=== PATIENT | female | born 1975 | race African-American/Black ===

== ENCOUNTER 2020-04-26 16:29 | Emergency (ER) | payer SELFPAY ==
[~2020-04-26] VITALS: Ht 160 cm; Wt 156.1 kg
[~2020-04-26 16:29] MED LIST: ONDA4TAB7 PO
[2020-04-26 16:50] VITALS: BP 153/77
[2020-04-26] MEDS ORDERED: PRED-220 PO (17:39)
--- NOTE | 2020-04-26 17:40 | PHYS DOC ---
Past History Past Medical History: No Pertinent History Past Surgical History: Cholecystectomy, Alcohol Use: None Drug Use: None General Adult EDM: Chief Complaint: FACE PAIN HPI: HPI: 44-year-old female presents with left-sided facial pain. She has had this intermittent pain for the last 1 week. It is a sharp and shooting pain 8/10 mostly in the maxilla, but involving the entire left side of her face. It does not cross midline. She is never had this before. She denies trauma or falls. She has not noticed any cavities or sensitive teeth. She admits that her bite on that side feels slightly different. The sharp shooting pain turned into a pressure sensation in the left side of her head. Even after the episodes stopped, this headache continues for few hours. She is mostly concerned because these episodes have gone on for a week and they seem to be more frequent not less. She is just tired of it. Review of Systems: Review of Systems: Constitutional: Denies fever or chills Eyes: Denies change in visual acuity HENT: Left-sided facial pain Respiratory: Denies cough or shortness of breath Cardiovascular: Denies chest pain or edema GI: Denies abdominal pain, nausea, vomiting, bloody stools or diarrhea : Denies dysuria Musculoskeletal: Denies back pain or joint pain Integument: Denies rash Neurologic: Denies headache, focal weakness or sensory changes Endocrine: Denies polyuria or polydipsia Lymphatic: Denies swollen glands Psychiatric: Denies depression or anxiety Heart Score: Risk Factors: Risk Factors: DM, Current or recent (<one month) smoker, HTN, HLP, family history of CAD, obesity. Risk Scores: Score 0 - 3: 2.5% MACE over next 6 weeks - Discharge Home Score 4 - 6: 20.3% MACE over next 6 weeks - Admit for Clinical Observation Score 7 - 10: 72.7% MACE over next 6 weeks - Early Invasive Strategies Allergies: Allergies: Allergies Coded Allergies Type Severity Reaction Last Updated Verified No Known Drug Allergies 12/18/15 No Physical Exam: PE: Constitutional: Well developed, well nourished, morbidly obese, no acute distress, non-toxic appearance. [] HENT: Sensitivity to palpation of the preauricular area of the left face. Normocephalic, atraumatic, bilateral external ears normal, oropharynx moist, no oral exudates, nose normal. [] Eyes: PERRLA, EOMI, conjunctiva normal, no discharge. [] Neck: Normal range of motion, no tenderness, supple, no stridor. [] Cardiovascular: Heart rate regular rhythm, no murmur [] Lungs & Thorax: Bilateral breath sounds clear to auscultation [] Abdomen: Bowel sounds normal, soft, no tenderness, no masses, no pulsatile masses. [] Skin: Warm, dry, no erythema, no rash. [] Back: No tenderness, no CVA tenderness. [] Extremities: No tenderness, no cyanosis, no clubbing, ROM intact, no edema. [] Neurologic: Alert and oriented X 3, normal motor function, normal sensory function, no focal deficits noted. [] Psychologic: Affect normal, judgement normal, mood anxious. [] Current Patient Data: Vital Signs: Vital Signs Date Time Temp Pulse Resp B/P (MAP) Pulse Ox O2 Delivery O2 Flow Rate FiO2 04/26/20 16:50 97.9 84 20 153/77 (102) 98 Room Air EKG: EKG: [] Radiology/Procedures: Radiology/Procedures: [] Course & Med Decision Making: Course & Med Decision Making Pertinent Labs and Imaging studies reviewed. (See chart for details) The patient's symptoms could be an acute irritation of the trigeminal nerve. This could be first episode onset of trigeminal neuralgia. I will assume a local cause at this time. I will treat her with 7 days of prednisone taper. If this does not help, I have advised the patient to follow-up with her primary care physician and see a neurologist as soon as possible. She is stable for discharge at this time. [] Jp Disclaimer: Jp Disclaimer: This electronic medical record was generated, in whole or in part, using a voice recognition dictation system. Departure Departure: Impression: Primary Impression: Facial pain, acute Additional Impression: Trigeminal neuralgia of left side of face Disposition: 01 HOME/RESIDENCE PRIOR TO ADM Condition: STABLE Referrals: SEAN GARCIA DO (PCP) Patient Instructions: Trigeminal Neuralgia Scripts Prednisone (PREDNISONE) 10 Mg Tablet 10 MG PO UD for PREDNISONE TAPER, #24 TAB 0 Refills Take 5 tablets by mouth daily for 2 days, then take 4 tablets by mouth daily for 2 days, then take 2 tablet by mouth daily for 2 days, then take 1 tablet by mouth daily for 2 days, then stop. Prov: SHAN BOYER DO 04/26/20 Justification of Admission: Justification of Admission: Justification of Admission Dx: N/A SHAN BOYER DO Apr 26, 2020 17:39
== END 2020-04-26 17:44 | disposition home or self-care (01) ==
LOC: ER 16:29
DX: G50.0 Trigeminal neuralgia (principal)
CPT/HCPCS: 99283

== ENCOUNTER 2020-06-04 13:10 | Emergency (ER) | payer OTHER ==
[~2020-06-04] VITALS: Ht 160 cm; Wt 156.1 kg
[~2020-06-04 13:10] MED LIST changes: +PRED-220 PO
[2020-06-04 13:34] VITALS: BP 134/84
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
== END 2020-06-04 14:25 | disposition home or self-care (01) ==
LOC: ER 13:10
DX: G89.11 Acute pain due to trauma (principal); M54.2 Cervicalgia; Z90.49 Acquired absence of other specified parts of digestive tract; Z98.890 Other specified postprocedural states; V98.8XXA Other specified transport accidents, initial encounter; Y93.89 Activity, other specified; Y92.413 State road as the place of occurrence of the external cause; Y99.8 Other external cause status
CPT/HCPCS: 70450; 72125; 99285

== ENCOUNTER 2020-10-28 18:53 | Emergency (ER) | payer SELFPAY ==
[~2020-10-28] VITALS: Ht 160 cm; Wt 153.6 kg
--- NOTE | 2020-10-28 19:30 | PHYS DOC ---
Past History Past Medical History: No Pertinent History Past Surgical History: Cholecystectomy, Alcohol Use: None Drug Use: None Adult General Chief Complaint Chief Complaint: LOWER EXTREMITY SWELLING HPI HPI Patient is a 45-year-old female with a past medical history significant for obesity otherwise unremarkable who presents with a chief complaint of right lower extremity swelling. States it started about 10 to 14 days ago in her right lower extremity. States over the last several days the swelling has increased and has become tender, 5 out of 10, dull and achy in nature and is uncomfortable when she walks. States she saw her primary care physician who started on a water pill but has not improved her situation. Denies any recent travel, illnesses, Covid/flu symptoms, traumas, recent surgeries, history of cancer. Allergies Allergies Allergies Coded Allergies Type Severity Reaction Last Updated Verified No Known Drug Allergies 12/18/15 No Physical Exam Physical Exam Constitutional: Well developed, well nourished, no acute distress, non-toxic appearance. [] Cardiovascular:Heart rate regular rhythm, no murmur [] Lungs & Thorax: Bilateral breath sounds clear to auscultation [] Abdomen: soft, no tenderness, no masses, no pulsatile masses. [] Skin: Warm, dry, no erythema, no rash. [] Back: No tenderness, no CVA tenderness. [] Extremities: Right lower extremity swelling/edema inferior to the right knee with tenderness but no erythema and mild warmth Neurologic: Alert and oriented X 3, normal motor function, normal sensory function, no focal deficits noted. [] Psychologic: Affect normal, judgement normal, mood normal. [] EKG EKG [] Radiology/Procedures Radiology/Procedures []Right Lower Extremity Venous Doppler: Reason for examination: Right lower extremity pain and swelling. The right lower extremity venous system was evaluated from the common femoral and greater saphenous veins distally to the calf veins with lo scale imaging, color flow imaging and spectral analysis. There is normal blood flow without deep venous thrombosis. There is normal response of the venous system to compression and augmentation. Impression: No deep venous thrombosis in the right lower extremity venous system. Electronically signed by: Samanta Holman MD (10/28/2020 8:38 PM) [facility] Heart Score C/O Chest Pain: No HEART Score for Chest Pain: HEART Score for Chest Pain Response (Comments) Value History Slighlty/Non-Suspicious 0 ECG Normal 0 Age < 45 0 Risk Factors 1 or 2 Risk Factors 1 Total 1 Risk Factors: Risk Factors: DM, Current or recent (<one month) smoker, HTN, HLP, family history of CAD, obesity. Risk Scores: Risk Factors: DM, Current or recent (<one month) smoker, HTN, HLP, family history of CAD, obesity. Course & Med Decision Making Course & Med Decision Making Patient is a 45-year-old female who presents with right lower extremity swelling and tenderness Vital signs not concerning. Physical exam noted above. Patient given oral pain medication Laboratory analysis not concerning. D-dimer normal. Ultrasound of the lower extremity normal. Discussed all findings with patient. Recommended compression stockings, elevation of extremities is much as possible, continuation of her medications and water pill that was prescribed by PCP. Advised to follow-up first thing in the morning with primary care physician to discuss ED visit and further evaluation and treatment. Gave strict return precautions to the ED. Patient grateful, verbalized understanding and agreed with plan of discharge. [] Dragon Disclaimer Dragon Disclaimer This electronic medical record was generated, in whole or in part, using a voice recognition dictation system. Departure Departure: Impression: Primary Impression: Lower extremity edema Disposition: 01 DC HOME SELF CARE/HOMELESS Condition: GOOD Referrals: SEAN GARCIA DO (PCP) Patient Instructions: Peripheral Edema Additional Instructions: Please read all the attached information. Your ultrasound did not show blood clot in your leg today. Your laboratory analysis was not concerning. Please begin using compression stockings, and keeping your extremities elevated as much as possible. Please continue taking your medications as prescribed by your primary care. Please call your primary care physician first thing in the m orning to update on your ED visit, and to set up a follow-up appointment to discuss further evaluation and treatment. Please come back to the emergency department immediately with any new or concerning symptoms. JAYESH HARDEN MD Oct 28, 2020 19:30
--- NOTE | 2020-10-28 20:40 | RAD ---
Right Lower Extremity Venous Doppler: Reason for examination: Right lower extremity pain and swelling. The right lower extremity venous system was evaluated from the common femoral and greater saphenous v eins distally to the calf veins with lo scale imaging, color flow imaging and spectral analysis. There is normal blood flow without deep venous thrombosis. There is normal response of the venous sys tem to compression and augmentation. Impression: No deep venous thrombosis in the right lower extremity venous system. Electronically signed by: Samanta Holman MD (10/28/2020 8:38 PM) [id number]
[2020-10-28 20:50] LABS: BASO % 1 % (0-3); EOS # 0.2 x10^3/uL (0.0-0.7); EOS % 2 % (0-3); HEMATOCRIT 34.2 % (36.0-47.0); HEMOGLOBIN 10.9 g/dL (12.0-15.5); LYMPH # 2.3 x10^3/uL (1.0-4.8); LYMPH % 35 % (24-48); MEAN CORPUSCULAR HEMOGLOBIN 28 pg (25-35); MEAN CORPUSCULAR HGB CONC 32 g/dL (31-37); MEAN CORPUSCULAR VOLUME 89 fL (79-100); MONO # 0.5 x10^3/uL (0.0-1.1); MONO % 7 % (0-9); NEUT # 3.5 x10^3uL (1.8-7.7); NEUT % 54 % (31-73); PLATELET COUNT 322 x10^3/uL (140-400); RED BLOOD COUNT 3.86 x10^6/uL (3.50-5.40); RED CELL DISTRIBUTION WIDTH 17.7 % (11.5-14.5); WHITE BLOOD COUNT 6.4 x10^3/uL (4.0-11.0)
[2020-10-28 21:01] LABS: CALCIUM 8.8 mg/dL (8.5-10.1); CREATININE 0.5 mg/dL (0.6-1.0); GFR 162.2; POTASSIUM 3.5 mmol/L (3.5-5.1)
[2020-10-28] MEDS ORDERED: oxyCODONE/APAP 5/325 1 TAB TABLET PO ONE (21:45)
[2020-10-28 22:00] VITALS: BP 148/81
== END 2020-10-28 22:00 | disposition home or self-care (01) ==
LOC: ER 18:53
DX: R60.0 Localized edema (principal); Z90.49 Acquired absence of other specified parts of digestive tract; E66.9 Obesity, unspecified; Z68.44 Body mass index [BMI] 60.0-69.9, adult
CPT/HCPCS: 36415; 80048; 81025; 85025; 85379; 93971; 99284-25

== ENCOUNTER 2021-05-10 16:07 | Emergency (ER) | payer SELFPAY ==
[~2021-05-10] VITALS: Ht 160 cm; Wt 156.0 kg
[2021-05-10 16:56] VITALS: BP 150/77
--- NOTE | 2021-05-10 17:05 | PHYS DOC ---
Past History Past Medical History: No Pertinent History (JEISON PAULSON APRN) Past Surgical History: No Surgical History (JEISON PAULSON APRN) Smoking: Non-smoker Alcohol Use: None Drug Use: None (JEISON PAULSON APRN) General Adult EDM: Chief Complaint: DIZZY/LIGHT HEADED HPI: HPI: Patient is a 46-year-old female that presents today with dizziness. Patient states that dizziness started on Sunday and is progressively gotten worse. She says at times dizziness is bad when she is lying in bed but then also states that it gets bad when she is walking around. Does not associate dizziness with turning her head or head movement. Patient also has sinus fullness and pain in her face and has slight headache. Patient states took Aleve prior to arrival to the emergency department (JEISON PAULSON APRN) Review of Systems: Review of Systems: Constitutional: Denies fever or chills Eyes: Denies change in visual acuity HENT: Denies nasal congestion or sore throat Respiratory: Denies cough or shortness of breath Cardiovascular: Denies chest pain or edema GI: Denies abdominal pain, nausea, vomiting, bloody stools or diarrhea : Denies dysuria Musculoskeletal: Denies back pain or joint pain Integument: Denies rash Neurologic: Dizziness and headache Endocrine: Denies polyuria or polydipsia Lymphatic: Denies swollen glands Psychiatric: Denies depression or anxiety (JEISON PAULSON APRN) Allergies: Allergies: Allergies Coded Allergies Type Severity Reaction Last Updated Verified No Known Drug Allergies 12/18/15 No (JEISON PAULSON APRN) Physical Exam: PE: Constitutional: Well developed, well nourished, no acute distress, non-toxic appearance. [] HENT: Mucous membranes moist, tympanic membranes are tight no erythema noted, nares are reddened and swollen, facial pain noted with palpation over frontal and ethmoid sinuses. Throat is red. Eyes: PERRLA, EOMI, conjunctiva normal, no discharge. [] Neck: Normal range of motion, no tenderness, supple, no stridor. [] Cardiovascular:Heart rate regular rhythm, no murmur [] Lungs & Thorax: Bilateral breath sounds clear to auscultation [] Skin: Warm, dry, no erythema, no rash. [] Back: No tenderness, no CVA tenderness. [] Extremities: No tenderness, no cyanosis, no clubbing, ROM intact, no edema. [] Neurologic: Alert and oriented X 3, normal motor function, normal sensory function, no focal deficits noted. [] Psychologic: Affect normal, judgement normal, mood normal. [] (JEISON PAULSON APRN) Current Patient Data: Vital Signs: 150/77 temp 97.6 (JEISON PAULSON APRN) EKG: EKG: [] (JEISON PAULSON APRN) Radiology/Procedures: Radiology/Procedures: PROCEDURE: CT HEAD WO CONTRAST EXAM: CT HEAD WITHOUT CONTRAST. HISTORY: Headache, dizziness. TECHNIQUE: Computed tomography of the head was performed without intravenous contrast. One or more of the following individualized dose reduction techniques were utilized for this examination: 1. Automated exposure control. 2. Adjustment of the mA and/or kV according to patient size. 3. Use of iterative reconstruction technique. COMPARISON: 06/04/2020. FINDINGS: There is no intracranial hemorrhage. Ruvalcaba-white differentiation is preserved. The ventricles are normal in size and position. The visualized paranasal sinuses appear clear. The orbits are unremarkable. The temporal bones are unremarkable. The calvarium reveals no suspicious lesions. IMPRESSION: 1. No acute intracranial findings. Electronically signed by: Carmen Hudson MD (05/10/2021 5:15 PM) [id number] [] (JEISON PAULSON APRN) Heart Score: C/O Chest Pain: N/A Risk Scores: Score 0 - 3: 2.5% MACE over next 6 weeks - Discharge Home Score 4 - 6: 20.3% MACE over next 6 weeks - Admit for Clinical Observation Score 7 - 10: 72.7% MACE over next 6 weeks - Early Invasive Strategies (JEISON PAULSON APRN) Course & Med Decision Making: Course & Med Decision Making CT scan negative Will advise patient to take xuvi-bvs-ivrzrxm antihistamines such as Claritin and/or Zyrtec for sinus pressure. Tylenol and/or ibuprofen as needed for pain. Flonase 2 sprays per nare for sinus congestion and sinus pressure as well. Follow-up with primary care physician next week if symptoms are no better (JEISON PAULSON APRN) Dragon Disclaimer: Dragon Disclaimer: This electronic medical record was generated, in whole or in part, using a voice recognition dictation system. (JEISON PAULSON APRN) Departure Departure: Impression: Primary Impression: Nonspecific dizziness Referrals: SEAN GARCIA DO (PCP) Patient Instructions: Sinus Headache Additional Instructions: Take frrh-ejj-iapiqyq Claritin or Zyrtec as labeled directed for sinus pressure Use Flonase zeff-wxl-jlrvtyb nasal spray twice daily as labeled directed for sinus pressure Tylenol and/or ibuprofen as needed for pain Return to the emergency department if increased dizziness, Unable to keep oral liquids down, fever or chills, or any stroke-like symptoms such as blurred vision double vision inability to move one side your body. Attending Signature Attending Signature I have reviewed the PA/SHOE SHINER's note and plan of care. I was available for consultation as needed during the patient's visit in the emergency department. I agree with the clinical impression, plan, and disposition. (ALYSE MILLER DO) JEISON PAULSON APRN May 10, 2021 17:05 ALYSE MILLER DO May 11, 2021 01:34
[2021-05-10] MEDS ORDERED: DEXAMETHASONE SOD PHOS 10 MG/ML VIAL. PO ONE (17:15)
--- NOTE | 2021-05-10 17:18 | RAD ---
EXAM: CT HEAD WITHOUT CONTRAST. HISTORY: Headache, dizziness. TECHNIQUE: Computed tomography of the head was performed without intravenous contrast. One or more of the following individualized dose reduction techniques were utilized for this examination: 1. Automated exposure control. 2. Adjustment of the mA and/or kV according to patient size. 3. Use of iterative reconstruction technique. COMPARISON: 06/04/2020. FINDINGS: There is no intracranial hemorrhage. Ruvalcaba-white differentiation is preserved. The ventricle s are normal in size and position. The visualized paranasal sinuses appear clear. The orbits are unremarkable. The temporal bones are un remarkable. The calvarium reveals no suspicious lesions. IMPRESSION: 1. No acute intracranial findings. Electronically signed by: Carmen Hudson MD (05/10/2021 5:15 PM) [id number]
[2021-05-10] MEDS: DEXAMETHASONE 4 MG TABLET PO ONE (17:36)
== END 2021-05-10 17:39 | disposition home or self-care (01) ==
LOC: ER 16:07
DX: R42 Dizziness and giddiness (principal); R51.9 Headache, unspecified
CPT/HCPCS: 70450; 99284; J8540

== ENCOUNTER 2021-06-27 17:42 | Emergency (ER) | payer SELFPAY ==
[~2021-06-27] VITALS: Ht 160 cm; Wt 156.3 kg
[2021-06-27] MEDS ORDERED: IOHEXOL 300 MG/ML 75 ML VIAL. IV ONE (18:15)
[2021-06-27] MEDS ORDERED: DEXAMETHASONE SOD PHOS 10 MG/ML VIAL. IVP ONE (18:15)
--- NOTE | 2021-06-27 19:08 | RAD ---
CT NECK SOFT TISSUE WITH IV CONTRAST DATE: 06/27/2021 6:49 PM INDICATION: left tonsil pain TECHNIQUE: Axial computed tomography of the neck with intravenous contrast according to the standard neck protocol. 73 cc of Omnipaque 300 was administered intravenously. One or more of the following do se reduction techniques were utilized: Automated exposure control (AEC), Adjustment of mA and/or kV according to patient size, Use of iterative reconstruction technique such as ASiR, CT scan done accor ding to ALARA and image gently/image wisely COMPARISON: CT head 05/10/2021. FINDINGS: Enlargement of the palatine tonsils, lingual tonsils, and adenoids. No abscess. No retropharyngeal co llection. Scattered subcentimeter lymph nodes are seen in the neck. None are pathologically enlarged or abnorma lly enhancing. The parotid, submandibular, and thyroid glands are normal. The muscles of the neck are normal. Vessels of the neck demonstrate normal course, caliber, and enhancement. Bilateral maxillary molar dental cavities. The visualized posterior fossa and brain is unremarkable. The visualized orbits and paranasal sinuses are normal. The cervical spine is normal. The visualized lung apices are clear. IMPRESSION: 1. Bilateral tonsillar enlargement. No abscess or retropharyngeal collection. 2. Bilateral maxillary molar dental cavities. Electronically signed by: Jose Armando Bustillos MD (06/27/2021 7:06 PM) [facility]
[2021-06-27 19:09] LABS: BASO % 1 % (0-3); EOS # 0.1 x10^3/uL (0.0-0.7); EOS % 1 % (0-3); HEMATOCRIT 40.4 % (36.0-47.0); HEMOGLOBIN 13.1 g/dL (12.0-15.5); LYMPH % 24 % (24-48); MEAN CORPUSCULAR HEMOGLOBIN 29 pg (25-35); MEAN CORPUSCULAR HGB CONC 32 g/dL (31-37); MEAN CORPUSCULAR VOLUME 90 fL (79-100); MONO # 0.5 x10^3/uL (0.0-1.1); MONO % 6 % (0-9); NEUT # 5.8 x10^3uL (1.8-7.7); NEUT % 68 % (31-73); PLATELET COUNT 295 x10^3/uL (140-400); RED BLOOD COUNT 4.48 x10^6/uL (3.50-5.40); RED CELL DISTRIBUTION WIDTH 16.5 % (11.5-14.5); WHITE BLOOD COUNT 8.5 x10^3/uL (4.0-11.0)
--- NOTE | 2021-06-27 19:24 | PHYS DOC ---
Past History Past Medical History: No Pertinent History (JEISON PAULSON APRN) Past Surgical History: Cholecystectomy, (JEISON PAULSON APRN) Smoking: Non-smoker Alcohol Use: None Drug Use: None (JEISON PAULSON APRN) General Adult EDM: Chief Complaint: FACE PAIN HPI: HPI: Patient is a 46-year-old female that presents today with left-sided throat and jaw pain. Patient states pain started yesterday and is progressively gotten worse over the last 24 hours, she states she is unable to open her mouth she has severe pain in her ear along with her throat area. Patient states she has had strep in the past and does still have her tonsils. Patient denies have any dental caries or tooth issues at this time on the left side of her jaw. (JEISON PAULSON APRN) Review of Systems: Review of Systems: Constitutional: Denies fever or chills Eyes: Denies change in visual acuity HENT: Left facial, jaw, ear pain Respiratory: Denies cough or shortness of breath Cardiovascular: Denies chest pain or edema GI: Denies abdominal pain, nausea, vomiting, bloody stools or diarrhea : Denies dysuria Musculoskeletal: Denies back pain or joint pain Integument: Denies rash Neurologic: Denies headache, focal weakness or sensory changes Endocrine: Denies polyuria or polydipsia Lymphatic: Denies swollen glands Psychiatric: Denies depression or anxiety (JEISON PAULSON APRN) Current Medications: Current Meds: Current Medications Medications (Trade) Dose Ordered Sig/Maegan Start Time Stop Time Status Last Admin Dose Admin Dexamethasone Sodium Phosphate (Decadron) 10 mg 1X ONCE 06/27/21 18:15 06/27/21 18:33 DC 06/27/21 19:02 10 MG Iohexol (Omnipaque 300 Mg/ml) 75 ml 1X ONCE 06/27/21 18:15 06/27/21 18:33 DC 06/27/21 18:52 75 ML (JEISON PAULSON APRN) Allergies: Allergies: Allergies Coded Allergies Type Severity Reaction Last Updated Verified No Known Drug Allergies 12/18/15 No (JEISON PAULSON APRN) Physical Exam: PE: Constitutional: Well developed, well nourished, mild distress, non-toxic appearance. [] HENT: Normocephalic, atraumati, oropharynx is reddened, unable to visualize tonsils due to patient's inability to open mouth, gumline on the upper and lower jaw is free of any dental caries or swelling, tympanic membranes on the left is bulging, pain with palpation of the external ear noted, nares are reddened and inflamed [] Eyes: PERRLA, EOMI, conjunctiva normal, no discharge. [] Neck: Normal range of motion, no tenderness, supple, no stridor. [] Cardiovascular:Heart rate regular rhythm, no murmur [] Lungs & Thorax: Bilateral breath sounds clear to auscultation [] Abdomen: Bowel sounds normal, soft, no tenderness, no masses, no pulsatile masses. [] Skin: Warm, dry, no erythema, no rash. [] Back: No tenderness, no CVA tenderness. [] Extremities: No tenderness, no cyanosis, no clubbing, ROM intact, no edema. [] Neurologic: Alert and oriented X 3, normal motor function, normal sensory function, no focal deficits noted. [] Psychologic: Affect normal, judgement normal, mood normal. [] (JEISON PAULSON APRN) Current Patient Data: Labs: Laboratory Tests Test 06/27/21 18:39 06/27/21 18:44 White Blood Count 8.5 x10^3/uL Red Blood Count 4.48 x10^6/uL Hemoglobin 13.1 g/dL Hematocrit 40.4 % Mean Corpuscular Volume 90 fL Mean Corpuscular Hemoglobin 29 pg Mean Corpuscular Hemoglobin Concent 32 g/dL Red Cell Distribution Width 16.5 % Platelet Count 295 x10^3/uL Neutrophils (%) (Auto) 68 % Lymphocytes (%) (Auto) 24 % Monocytes (%) (Auto) 6 % Eosinophils (%) (Auto) 1 % Basophils (%) (Auto) 1 % Neutrophils # (Auto) 5.8 x10^3uL Lymphocytes # (Auto) 2.0 x10^3/uL Monocytes # (Auto) 0.5 x10^3/uL Eosinophils # (Auto) 0.1 x10^3/uL Basophils # (Auto) 0.0 x10^3/uL Sodium Level 136 mmol/L Potassium Level 3.5 mmol/L Chloride Level 100 mmol/L Carbon Dioxide Level 29 mmol/L Anion Gap 7 Blood Urea Nitrogen 7 mg/dL Creatinine 0.7 mg/dL Estimated GFR (Cockcroft-Gault) 109.5 Glucose Level 114 mg/dL Calcium Level 9.2 mg/dL SARS-CoV-2 Antigen (Rapid) Negative Bedside Urine HCG, Qualitative hcg negative Current Medications Medications (Trade) Dose Ordered Sig/Maegan Route PRN Reason Start Time Stop Time Status Last Admin Dose Admin Dexamethasone Sodium Phosphate (Decadron) 10 mg 1X ONCE IVP 06/27/21 18:15 06/27/21 18:33 DC 06/27/21 19:02 Iohexol (Omnipaque 300 Mg/ml) 75 ml 1X ONCE IV 06/27/21 18:15 06/27/21 18:33 DC 06/27/21 18:52 Ketorolac Tromethamine (Toradol 30mg Vial) 30 mg 1X ONCE IVP 06/27/21 20:00 06/27/21 20:01 UNV Laboratory Tests Test 06/27/21 18:39 06/27/21 18:44 White Blood Count 8.5 x10^3/uL (4.0-11.0) Red Blood Count 4.48 x10^6/uL (3.50-5.40) Hemoglobin 13.1 g/dL (12.0-15.5) Hematocrit 40.4 % (36.0-47.0) Mean Corpuscular Volume 90 fL (79-100) Mean Corpuscular Hemoglobin 29 pg (25-35) Mean Corpuscular Hemoglobin Concent 32 g/dL (31-37) Red Cell Distribution Width 16.5 % (11.5-14.5) H Platelet Count 295 x10^3/uL (140-400) Neutrophils (%) (Auto) 68 % (31-73) Lymphocytes (%) (Auto) 24 % (24-48) Monocytes (%) (Auto) 6 % (0-9) Eosinophils (%) (Auto) 1 % (0-3) Basophils (%) (Auto) 1 % (0-3) Neutrophils # (Auto) 5.8 x10^3uL (1.8-7.7) Lymphocytes # (Auto) 2.0 x10^3/uL (1.0-4.8) Monocytes # (Auto) 0.5 x10^3/uL (0.0-1.1) Eosinophils # (Auto) 0.1 x10^3/uL (0.0-0.7) Basophils # (Auto) 0.0 x10^3/uL (0.0-0.2) POC Urine HCG, Qualitative hcg negative (Negative) Vital Signs: Vital Signs Date Time Temp Pulse Resp B/P (MAP) Pulse Ox O2 Delivery O2 Flow Rate FiO2 06/27/21 20:02 83 20 132/59 (83) 98 Room Air 06/27/21 19:57 85 20 132/70 (90) 100 Room Air 06/27/21 19:32 80 20 151/74 (99) 98 Room Air 06/27/21 19:05 87 20 151/74 (99) 100 Room Air 06/27/21 17:45 99.4 97 20 143/73 (96) 97 Room Air Vital Signs Date Time Temp Pulse Resp B/P (MAP) Pulse Ox O2 Delivery O2 Flow Rate FiO2 06/27/21 19:05 87 20 151/74 (99) 100 Room Air 06/27/21 17:45 99.4 (JEISON PAULSON [facility]) EKG: EKG: [] (JEISON PAULSON [facility]) Radiology/Procedures: Radiology/Procedures: REASON: left tonsil pain, OMNI 300, 73ml PROCEDURE: CT SOFT TISSUE NECK W/CONTRAST CT NECK SOFT TISSUE WITH IV CONTRAST DATE: 06/27/2021 6:49 PM INDICATION: left tonsil pain TECHNIQUE: Axial computed tomography of the neck with intravenous contrast according to the standard neck protocol. 73 cc of Omnipaque 300 was administered intravenously. One or more of the following dose reduction techniques were utilized: Automated exposure control (AEC), Adjustment of mA and/or kV according to patient size, Use of iterative reconstruction technique such as ASiR, CT scan done according to ALARA and image gently/image wisely COMPARISON: CT head 05/10/2021. FINDINGS: Enlargement of the palatine tonsils, lingual tonsils, and adenoids. No abscess. No retropharyngeal collection. Scattered subcentimeter lymph nodes are seen in the neck. None are pa thologically enlarged or abnormally enhancing. The parotid, submandibular, and thyroid glands are normal. The muscles of the neck are normal. Vessels of the neck demonstrate normal course, caliber, and enhancement. Bilateral maxillary molar dental cavities. The visualized posterior fossa and brain is unremarkable. The visualized orbits and paranasal sinuses are normal. The cervical spine is normal. The visualized lung apices are clear. IMPRESSION: 1. Bilateral tonsillar enlargement. No abscess or retropharyngeal collection. 2. Bilateral maxillary molar dental cavities. Electronically signed by: Jose Armando Bustillos MD (06/27/2021 7:06 PM) [facility] (JEISON PAULSON [facility]) Heart Score: C/O Chest Pain: N/A Risk Factors: Risk Factors: DM, Current or recent (<one month) smoker, HTN, HLP, family history of CAD, obesity. Risk Scores: Score 0 - 3: 2.5% MACE over next 6 weeks - Discharge Home Score 4 - 6: 20.3% MACE over next 6 weeks - Admit for Clinical Observation Score 7 - 10: 72.7% MACE over next 6 weeks - Early Invasive Strategies (JEISON PAULSON APRN) Course & Med Decision Making: Course & Med Decision Making Pertinent Labs and Imaging studies reviewed. (See chart for details) 1939 reassessment of patient shows patient continues to have left ear pain. Reviewed radiological results and lab results with patient, will treat patient with some IV Toradol for pain and will send patient home with some oral antibiotics to follow-up with her primary care by the end of the week patient is agreeable to the plan of care and is okay with going home .. (JEISON PAULSON [facility]) [place] Disclaimer: Jp Disclaimer: This electronic medical record was generated, in whole or in part, using a voice recognition dictation system. (JEISON PAULSON [facility]) Departure Departure: Impression: Primary Impression: Otitis media Qualified Codes: H66.92 - Otitis media, unspecified, left ear Disposition: HOME / SELF CARE / HOMELESS Condition: STABLE Referrals: SEAN GARCIA DO (PCP) Patient Instructions: Otitis Media, Adult Additional Instructions: Take Tylenol and/or ibuprofen as needed for your ear pain Follow-up with your primary care physician by the end the week if pain is not better Turn to the emergency department if you have drainage from the ear, inability to open jaw, inability to take p.o. fluids due to inability to swallow. Take antibiotics as labeled directed Scripts Amoxicillin (AMOXICILLIN) 500 Mg Capsule 1 CAP PO BID for infection for 10 Days, #20 CAP Prov: JEISON PAULSON [facility] 06/27/21 Attending Signature Attending Signature I have reviewed the PA/CORSET FITTER's note and plan of care. I was available for consultation as needed during the patient's visit in the emergency department. I agree with the clinical impression, plan, and disposition. (ALYSE MILLER DO) JEISON PAULSON [facility] Jun 27, 2021 19:24 ALYSE MILLER DO Jun 28, 2021 00:13
[2021-06-27 19:27] LABS: CALCIUM 9.2 mg/dL (8.5-10.1); CREATININE 0.7 mg/dL (0.6-1.0); GFR 109.5; POTASSIUM 3.5 mmol/L (3.5-5.1)
[2021-06-27] MEDS ORDERED: AMOX500C PO (19:55)
[2021-06-27] MEDS ORDERED: KETOROLAC 30 MG/ML VIAL. IVP ONE (20:00)
[2021-06-27 20:02] VITALS: BP 132/59
== END 2021-06-27 20:08 | disposition home or self-care (01) ==
LOC: ER 17:42
DX: H66.92 Otitis media, unspecified, left ear (principal); R07.0 Pain in throat; R68.84 Jaw pain; Z20.822 Contact with and (suspected) exposure to COVID-19
CPT/HCPCS: 70491; 80048; 81025; 85025; 87426; 96374; 96375; 99285; C9803; J1100; J1885; Q9967; U0003

== ENCOUNTER 2021-10-13 15:07 | Emergency (ER) | payer SELFPAY ==
[~2021-10-13] VITALS: Ht 160 cm; Wt 155.9 kg
[~2021-10-13 15:07] MED LIST changes: +AMOX500C PO
[2021-10-13] MEDS: CYCLOBENZAPRINE 10 MG TABLET. PO ONE (16:30)
[2021-10-13] MEDS: KETOROLAC 60 MG/2 ML VIAL. IM ONE (16:30)
[2021-10-13] MEDS ORDERED: KETOROLAC 60 MG/2 ML VIAL. IM ONE (16:32)
[2021-10-13] MEDS ORDERED: CYCLOBENZAPRINE 10 MG TABLET. ONE (16:32)
[2021-10-13] MEDS ORDERED: TRAM-48 PO (16:37)
[2021-10-13] MEDS ORDERED: CYCL10TA19 PO (16:37)
--- NOTE | 2021-10-13 16:39 | PHYS DOC ---
Past History Past Medical History: No Pertinent History Past Surgical History: Cholecystectomy, Smoking: Non-smoker Alcohol Use: None Drug Use: None General Adult EDM: Chief Complaint: BACK INJURY HPI: HPI: 46-year-old female presents with a chief complaint of right-sided back pain. Patient's back pain located right paraspinal. Pain does not radiate. No exacerbating factors include twisting turning and bending. Patient denies any injuries. Patient states pain initially started 2 weeks ago is progressively becoming worse. Patient has been taking OTC Aleve with mild relief. Patient did not take any pain medications today. Patient states prior to arrival pain intensified and she had to leave work. Patient ambulates with steady gait no saddle anesthesia no loss of bowel or bladder. Review of Systems: Review of Systems: Constitutional: Denies fever or chills Eyes: Denies change in visual acuity HENT: Denies nasal congestion or sore throat Respiratory: Denies cough or shortness of breath Cardiovascular: Denies chest pain or edema GI: Denies abdominal pain, nausea, vomiting, bloody stools or diarrhea : Denies dysuria Musculoskeletal: Positive back pain Integument: Denies rash Neurologic: Denies headache, focal weakness or sensory changes Endocrine: Denies polyuria or polydipsia Lymphatic: Denies swollen glands Psychiatric: Denies depression or anxiety Current Medications: Current Meds: Current Medications Medications (Trade) Dose Ordered Sig/Maegan Start Time Stop Time Status Last Admin Dose Admin Cyclobenzaprine HCl (Flexeril) 10 mg 1X ONCE 10/13/21 16:30 10/13/21 16:31 UNV Ketorolac Tromethamine (Toradol Im) 60 mg 1X ONCE 10/13/21 16:30 10/13/21 16:31 UNV Allergies: Allergies: Allergies Coded Allergies Type Severity Reaction Last Updated Verified No Known Drug Allergies 10/13/21 No Physical Exam: PE: Constitutional: Well developed, well nourished, no acute distress, non-toxic appearance. [] HENT: Normocephalic, atraumatic, bilateral external ears normal, oropharynx moist, no oral exudates, nose normal. [] Eyes: PERRLA, EOMI, conjunctiva normal, no discharge. [] Neck: Normal range of motion, no tenderness, supple, no stridor. [] Cardiovascular:Heart rate regular rhythm, no murmur [] Lungs & Thorax: Bilateral breath sounds clear to auscultation [] Abdomen: Bowel sounds normal, soft, no tenderness, no masses, no pulsatile masses. [] Skin: Warm, dry, no erythema, no rash. [] Back: Tenderness to palpation right paraspinal lateral L4-L5 pain is reproducible no T-spine L-spine midline tenderness step-off or deformity Extremities: No tenderness, no cyanosis, no clubbing, ROM intact, no edema. [] Neurologic: Alert and oriented X 3, normal motor function, normal sensory function, no focal deficits noted. [] Psychologic: Affect normal, judgement normal, mood normal. [] Current Patient Data: Vital Signs: Vital Signs Date Time Temp Pulse Resp B/P (MAP) Pulse Ox O2 Delivery O2 Flow Rate FiO2 10/13/21 16:08 98.7 80 20 137/86 (103) 99 Room Air EKG: EKG: [] Radiology/Procedures: Radiology/Procedures: [] Heart Score: C/O Chest Pain: N/A Risk Factors: Risk Factors: DM, Current or recent (<one month) smoker, HTN, HLP, family history of CAD, obesity. Risk Scores: Score 0 - 3: 2.5% MACE over next 6 weeks - Discharge Home Score 4 - 6: 20.3% MACE over next 6 weeks - Admit for Clinical Observation Score 7 - 10: 72.7% MACE over next 6 weeks - Early Invasive Strategies Course & Med Decision Making: Course & Med Decision Making Pertinent Labs and Imaging studies reviewed. (See chart for details) [] Treatment in the ER will include Toradol and Flexeril. Patient will be discharged home with Flexeril and Ultram. Patient advised to continue taking Aleve. Jp Disclaimer: Jp Disclaimer: This electronic medical record was generated, in whole or in part, using a voice recognition dictation system. Departure Departure: Impression: Primary Impression: Back pain Disposition: 01 HOME / SELF CARE / HOMELESS Condition: STABLE Referrals: SEAN GARCIA DO (PCP) Patient Instructions: Back Pain, Adult Scripts Cyclobenzaprine Hcl (CYCLOBENZAPRINE HCL) 10 Mg Tablet 1 TAB PO TID, #30 TAB Prov: NICOLAS AMBROCIO DO 10/13/21 Tramadol Hcl (ULTRAM) 50 Mg Tablet 1 TAB PO PRN Q6HRS PRN for pain MDD 4 Tablet(s) for 7 Days, #28 TAB 0 Refills Prov: NICOLAS AMBROCIO DO 10/13/21 NICOLAS AMBROCIO DO Oct 13, 2021 16:39
[2021-10-13 16:44] VITALS: BP 168/86
== END 2021-10-13 16:55 | disposition home or self-care (01) ==
LOC: ER 15:07
DX: M54.59 Other low back pain (principal); Z90.49 Acquired absence of other specified parts of digestive tract; Z98.890 Other specified postprocedural states
CPT/HCPCS: 96372; 99283; J1885